=== PATIENT | female | born 1965 | race Caucasian/White ===

== ENCOUNTER → 2017-08-30 | Outpatient (CLI) | payer OTHER ==
[~2017-08-30] MED LIST: ACET-1600 PO; CALC-680 PO; ESTR1TAB99 PO; IBUP200C8 PO; LORA10TA3 PO; METH4TAB2 PO; METH750T2 PO; MULT-230 PO; OMEP-110 PO; OXYC1TAB7 PO; SUMA100T4 PO; THYR30TA PO; ZOLP5TAB6 PO
== END | disposition home or self-care (01) ==
LOC: CFH 11:29
PROVIDERS: ATTEND Family Medicine
DX: Z12.31 Encounter for screening mammogram for malignant neoplasm of breast (principal)
CPT/HCPCS: G0202

== ENCOUNTER → 2018-09-03 | Outpatient (CLI) | payer OTHER | END | disposition home or self-care (01) | LOC: CFH 08:29 | PROVIDERS: ATTEND Registered Nurse | DX: Z12.31 Encounter for screening mammogram for malignant neoplasm of breast (principal); D48.5 Neoplasm of uncertain behavior of skin | CPT/HCPCS: 77067 ==

== ENCOUNTER → 2020-07-29 | Outpatient (CLI) | payer OTHER ==
[~2020-07-29] MED LIST changes: +LORA-247 PO; -LORA10TA3 PO; -MULT-230 PO; +MULT-806 PO
== END | disposition home or self-care (01) ==
LOC: CFH 15:33 → EDSTATUS 16:15
PROVIDERS: ATTEND Internal Medicine Cardiovascular Disease
DX: R00.2 Palpitations (principal)
CPT/HCPCS: 93306

== ENCOUNTER → 2020-09-06 | Outpatient (CLI) | payer OTHER | END | disposition home or self-care (01) | LOC: CFH 15:32 | PROVIDERS: ATTEND Family Medicine | DX: Z12.31 Encounter for screening mammogram for malignant neoplasm of breast (principal) | CPT/HCPCS: 77067 ==